=== PATIENT | female | born 1975 | race Caucasian/White ===

== ENCOUNTER → 2020-08-22 12:07 | Outpatient (CLI) | payer MEDICAID, SELFPAY ==
[2020-08-23 09:46] LABS: Covid-19 Nasal PCR Sendout Lex NOT DETECTED
== END ==
PROVIDERS: Visit Provider Nurse Practitioner Family
DX: Z03.818 Encounter for observation for suspected exposure to other biological agents ruled out (principal); J02.9 Acute pharyngitis, unspecified
CPT/HCPCS: U0004